=== PATIENT | male | born 1965 | race Caucasian/White ===

== ENCOUNTER 2016-11-17 19:51 | Observation (INO) | payer OTHER ==
[~2016-11-17] VITALS: Ht 175.3 cm; Wt 99.8 kg
--- NOTE | 2016-11-17 20:08 | NUR ---
PT TO ED FOR INTERMITTENT DIZZINESS X 10 DAYS. ALSO REPORTING BLURRY VISION ASSOCIATED WITH DIZZINESS, ALSO REPORTING NAUSEA WELL. DENIES CP, SOB, TAPIA.
--- NOTE | 2016-11-17 20:41 | NUR ---
SST LAV AND BLUE DRAWN AND SENT TO LAB
[2016-11-17 20:47] LABS: ABSOLUTE BASOPHIL COUNT 0 /CUMM (0.0-0.2); ABSOLUTE EOSINOPHIL COUNT 0.1 /CUMM (0.0-0.7); ABSOLUTE MONOCYTE COUNT 0.7 /CUMM (0.10-0.60); BASOPHIL % 0.4 % (0.0-2.0); EOSINOPHIL % 1.6 % (0-5); GRANULOCYTE % 44.9 % (42.2-75.2); MEAN CORPUSCULAR HGB 30.2 PG (27.0-31.0); MEAN CORPUSCULAR HGB CONC 33.8 G/DL (33.0-37.0); MEAN CORPUSCULAR VOLUME 89.2 FL (80.0-94.0); MEAN PLATELET VOLUME 8.9 FL (7.4-10.4); PLATELET COUNT 218 /CUMM (130-400); RBC DISTRIBUTION WIDTH 12.5 % (11.5-14.5); RED BLOOD CELL CT 5.27 /CUMM (4.70-6.10); WHITE BLOOD CELL COUNT 8.8 /CUMM (4.8-10.8)
[2016-11-17] MEDS ORDERED: ATENOLOL25 M1 PO (21:07)
[2016-11-17] MEDS ORDERED: LOVASTATIN10 M1 PO (21:07)
[2016-11-17] MEDS ORDERED: ADVIL200 M1 PO (21:08)
[2016-11-17] MEDS ORDERED: OMEPRAZOLE20 M2 PO (21:08)
--- NOTE | 2016-11-17 21:20 | NUR ---
PT IN ROOM 16. COMPLAINING OF DIZZINESS FOR PAST SEVERAL DAYS. SAID HIS CO WORKERS AND FAMILY ENCOURAGED HIM TO COME TO ED BECAUSE HE "DID NOT LOOK WELL". COMPLAINING OF MILD HEADACHE-STATES HE ALWAYS HAS HEADACHE. DENIES DIZZINESS AT PRESENT.
--- NOTE | 2016-11-17 21:30 | ED GENERAL ADULT ---
History of Present Illness General Chief Complaint: Dizziness Stated Complaint: DIZZY, RIGHT EYE BLURRED VISION Source: patient Exam Limitations: no limitations Vital Signs & Intake/Output Vital Signs & Intake/Output Vital Signs Date Time Temp Pulse Resp B/P Pulse O2 O2 Flow FiO2 Ox Delivery Rate 11/18 1627 98.2 72 20 140/90 95 Room Air 11/18 0800 98.0 77 20 132/80 94 Room Air 11/18 0155 97.8 64 18 138/90 97 Room Air 11/18 0056 96.0 58 20 133/71 96 Room Air 11/17 2159 98.0 70 18 158/92 98 Room Air 11/17 2134 Room Air ED Intake and Output 11/18 0000 11/17 1200 Intake Total Output Total Balance Patient 220 lb Weight Allergies Coded Allergies: No Known Allergies (11/17/16) Reconcile Medications Atenolol 50 MG TABLET 1 TAB PO DAILY hypertension and headache Ibuprofen (Advil) 200 MG CAPSULE 2 CAP PO PRN PAIN (Reported) Lovastatin 20 MG TABLET 1 TAB PO DAILY hyperlipidemia Omeprazole 20 MG CAPSULE.DR 1 CAP PO DAILY GI (Reported) Triage Note: PT TO ED FOR INTERMITTENT DIZZINESS X 10 DAYS. ALSO REPORTING BLURRY VISION ASSOCIATED WITH DIZZINESS, ALSO REPORTING NAUSEA WELL. DENIES CP, SOB, TAPIA. Triage Nurses Notes Reviewed? yes Onset: Gradual Duration: day(s): (10) Timing: no prior history Injury Environment: home Severity: moderate Severity Numbers: 7 Modifying Factors: Improves With: immobilization. Worsens With: movement, other (POSITIONAL CHANGES). HPI: Patient is a 51-year-old male with history of high cholesterol, hypertension presenting to the emergency department chief complaint of intermittent dizziness that has been going on for the past 10 days. Patient also reports associated visual changes. He describes them as "unable to concentrate". 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 The next day he was vomiting 5 episodes. Nonbloody nonbilious. No fevers or chills. He feels like he is off balance when he ambulates. He feels like he just to the right when he ambulates. 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 Denies taking anything help with symptoms. Denies any family history of stroke or heart attack. Denying any shortness of breath chest pain or palpitations. Still eating and drinking without difficulty. Mild nausea. No diarrhea. Denies abdominal pain. (MELBA PARKER) Past History Travel History Traveled to [place] past 21 day No Medical History Any Pertinent Medical History? see below for history Neurological: NONE EENT: NONE Cardiovascular: HTN HIGH CHOLESTEROL Respiratory: NONE Gastrointestinal: NONE Hepatic: NONE Renal: NONE Musculoskeletal: NONE Psychiatric: NONE Endocrine: NONE Blood Disorders: NONE Cancer(s): NONE Surgical History Surgical History: non-contributory Psychosocial History What is your primary language Kazakh Tobacco Use: Never used 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 Illicit Drug Use: denies illicit drug use Family History Hx Contributory? No (MELBA PARKER) Review of Systems Review of Systems Constitutional: Reports: malaise. Comments Review of systems: See HPI, All other systems negative. Constitutional, no chills fever or weight loss HEENT: No visual changes no sore throat no congestion Cardiovascular: No chest pain ,palpitation , orthopnea or ankle swelling Skin, no jaundice no rashes Respiratory: No dyspnea cough sputum or hemoptysis GI: No diarrhea : No dysuria No hematuria Muscle skeletal: no back pain, no neck pain, Neurologic: No numbness Psych: No stress anxiety or depression,. Heme/endocrine: No bruising no bleeding no polyuria or polydipsia Immunology: No splenectomy or history of AIDS (MELBA PARKER) Physical Exam Physical Exam General Appearance: well developed/nourished, no apparent distress, alert, awake , comfortable Comments: Well-developed well-nourished person in no acute distress HEENT: Normal EENT exam, extraocular motion intact, no nystagmus. Pupils equally round and reactive to light and accommodation. Nose is atraumatic. External auditory canal and Tympanic membranes clear. Pharynx normal. No swelling or edema. Funduscopic: Very limited secondary to no dilation prior to exam unable to appreciate any abnormalities. No obvious retinal detachment appreciated. Neck: Supple, no lymphadenopathy, normal range of motion without pain or tenderness Back: Nontender Cardiovascular: Regular rate and rhythms no murmurs rubs or gallops, normal JVP Respiratory: Chest nontender. No respiratory distress.breath sounds clear to auscultation bilaterally Abdomen: Soft, nontender nondistended, no appreciable organomegaly. Normal bowel sounds. No ascites Extremity: No edema, no calf tenderness to palpation, normal and equal pulses. Neuro: Alert oriented x3, motor sensory normal, cranial nerves II through XII grossly intact. Gait appears steady Cerebellar testing is unremarkable. Visual clemens are unremarkable bilaterally., Skin: No appreciable rash on exposed skin, skin is warm and dry. Psych: Mood and affect is normal, memory and judgment is normal. Core Measures ACS in differential dx? No CVA/TIA Diagnosis: Yes Severe Sepsis Present: No Septic Shock Present: No (NIKKI RAGSDALE,MELBA) Progress Differential Diagnoses I considered the following diagnoses in my evaluation of the patient: Hypertensive emergency, end organ damage, CVA, intracranial hemorrhage, electrolyte abnormality, dehydration, orthostatic hypotension, anemia Plan of Care: Orders Procedure Date/time Status Anticipated Discharge 11/19 0800 Active LIPID PANEL 11/19 0600 Active BASIC ELECTROLYTES PLUS BUN&CR 11/19 0600 Active Heart Healthy Diet 11/18 B Active URINE DRUGS OF ABUSE 11/18 1754 Active URINALYSIS 11/18 175 Active Change service to 11/18 1550 Active WESTERGREN SED RATE 11/18 0600 Complete CBC WITHOUT DIFFERENTIAL 11/18 0600 Complete BASIC ELECTROLYTES PLUS BUN&CR 11/18 0600 Complete Pathway - chart 11/18 0212 Active Pathway - chart 11/18 0135 Active House Staff 11/18 0135 Active Patient Data 11/18 0135 Active Code Status 11/18 0135 Active Teach/Educate 11/18 0050 Active Pain Treatment and Response 11/18 0050 Active Nutritional Intake, Monitor 11/18 0050 Active Isolation 11/18 0050 Active Patient Care Conference 11/18 0050 Active Activity/Ambulation 11/18 0050 Active PT Evaluate & Treat 11/18 UNK Active Therapeutic Activities 11/18 UNK Complete PT EVAL LOW COMPLEX 20 MIN 11/18 UNK Complete Neuromuscular Re-ed 11/18 UNK Complete Gait Training 11/18 UNK Complete House Staff 11/18 UNK Active Lab Add-on Test 11/18 UNK Active Occupational Tx Eval & Treat 11/18 UNK Active VTE Mechanical Prophylaxis 11/18 UNK Active MISTAKE 11/18 UNK Active Telemetry/Terrazzo Worker Apprentice 11/18 UNK Active ECHOCARDIOGRAM 11/18 UNK Active NIH Stroke Scale 11/17 2352 Active Patient Data 11/[address] in observation 11/17 2318 Active Vital Signs 11/17 2318 Active Code Status 11/17 2317 Complete Intake & Output 11/17 2132 Active FOLIC ACID 11/18 2039 Complete VITAMIN B12 11/18 2039 Complete Current Medications Sig/Diane Start time Last Medication Dose Stop Time Status Admin Acetaminophen 650 MG Q6P PRN 11/18 214 AC (Tylenol) Meclizine HCl 25 MG TIDPRN PRN 11/18 214 AC (Antivert) Laboratory Tests 11/18/16 0620: Anion Gap 8, Estimated GFR > 60, BUN/Creatinine Ratio 20.0, CBC w Diff NO MAN DIFF REQ, RBC 5.15, MCV 88.9, MCH 30.2, RDW 12.2, MPV 9.2, Gran % 56.0, Lymphocytes % 31.1, Monocytes % 10.5 H, Eosinophils % 1.7, Basophils % 0.7, Absolute Granulocytes 4.4, Absolute Lymphocytes 2.5, Absolute Monocytes 0.8 H, Absolute Eosinophils 0.1, Absolute Basophils 0.1, PUBS MCHC 34.0, ESR Westergren 2 Diagnostic Imaging: Viewed by Me: Radiology Read, CT Scan. Discussed w/RAD: Radiology Read, CT Scan. Radiology Impression: PATIENT: LAMBERTO KAMARA PRESENT AGE: 51 PATIENT ACCOUNT NO: [id number] : 66 LOCATION: [facility] ORDERING PHYSICIAN: MELBA RAGSDALE SERVICE DATE: 11/17/16 EXAM TYPE: CAT - CT HEAD W&WO IV CONTRAST EXAMINATION: CT HEAD WITHOUT AND WITH CONTRAST CLINICAL INFORMATION: Dizziness and visual changes. COMPARISON: None TECHNIQUE: Contiguous axial imaging was performed from the skull base to vertex before and after the administration of 95 mL of Optiray 320 intravenous contrast. DLP: 1201.41 mGy-cm FINDINGS: There is no evidence of acute intracranial hemorrhage or territorial infarction. No abnormal mass effect or midline shift is seen. [place] to white matter differentiation is well preserved. No extra-axial fluid collections are identified. There is no abnormal enhancement. The ventricles are normal in size. There is no abnormal attenuation within the brain parenchyma. The osseous structures and soft tissues are normal. The mastoid air cells and visualized portions of the paranasal sinuses are well aerated. IMPRESSION: No acute intracranial pathology. DICTATED BY: JOON GENAO MD DATE/TIME DICTATED:11/17/162244 WIRE STITCHER:DEO DATE/TIME TRANSCRIBED:11/17/162244 CONFIDENTIAL, DO NOT COPY WITHOUT APPROPRIATE AUTHORIZATION. <Electronically signed in Other Vendor System> Initial ED EKG: NSR (63 BPM) Comments: The patient is slightly hypertensive, neurologically intact no focal deficits. We will assess blood work, CBC, CMP to look for end organ damage. he'll have a CT of the head with and without contrast. 11/17/2016 11:09:33 PM patient will be signed out to Dr. ortiz pending lab work and imaging studies. (MELBA PARKER) Departure Departure Condition: Stable Clinical Impression Primary Impression: Dizziness Referrals: DAVIAN PABON,Chen COLINDRES (PCP/Family) Departure Forms: Customer Survey General Discharge Information Prescriptions: Current Visit Scripts Atenolol 1 TAB PO DAILY #30 Lovastatin 1 TAB PO DAILY #30 (MELBA PARKER) Departure Time of Disposition: 2333 Disposition: STILL A PATIENT Observation Note Spoke With: FRANCHEKSA BOWSER MD Physician Advisor Notified: KOLBY GOLDBERG DO Place Patient In: Non-ED OBS Care Area Rationale for Observation: My rational for observation is as follows [TELE MONITOR, ASPIRIN, MRI HEAD, NEURO CONSULT]. PA/MATERIAL DISPOSITION INSPECTOR Co-Sign Statement Statement: ED Attending supervision documentation- [X] I saw and evaluated the patient. I have also reviewed all the pertinent lab results and diagnostic results. I agree with the findings and the plan of care as documented in the PA's/MATERIAL DISPOSITION INSPECTOR's documentation. [X] I have reviewed the ED Record and agree with the PA's/MATERIAL DISPOSITION INSPECTOR's documentation. [] Additions or exceptions (if any) to the PAs/MATERIAL DISPOSITION INSPECTOR's note and plan are summarized below: [] (JAMAL PABON,NU) Critical Care Note Critical Care Note Critical Care Time: 30-74 min (MELBA PARKER)
--- NOTE | 2016-11-17 21:33 | NUR ---
ORTHOSTATIC BLOOD PRESSURES DONE AND MELBA RAGSDALE IN TO SEE PT
--- NOTE | 2016-11-17 21:59 | NUR ---
IV PLACED FOR CT SCAN. MANUAL BLOOD PRESSURE CHECKED
--- NOTE | 2016-11-17 22:45 | NUR ---
PT IN CT SCAN AND XRAY
--- NOTE | 2016-11-17 22:54 | NUR ---
RETURNED FROM CT SCAN. IVF STARTED
--- NOTE | 2016-11-17 22:54 | CT SCAN REPORT ---
EXAMINATION: CT HEAD WITHOUT AND WITH CONTRAST CLINICAL INFORMATION: Dizziness and visual changes. COMPARISON: None TECHNIQUE: Contiguous axial imaging was performed from the skull base to vertex before and after the administration of 95 mL of Optiray 320 intravenous contrast. DLP: 1201.41 mGy-cm FINDINGS: There is no evidence of acute intracranial hemorrhage or territorial infarction. No abnormal mass effect or midline shift is seen. [place] to white matter differentiation is well preserved. No extra-axial fluid collections are identified. There is no abnormal enhancement. The ventricles are normal in size. There is no abnormal attenuation within the brain parenchyma. The osseous structures and soft tissues are normal. The mastoid air cells and visualized portions of the paranasal sinuses are well aerated. IMPRESSION: No acute intracranial pathology.
--- NOTE | 2016-11-17 23:00 | NUR ---
MELBA IN TO INFORM PT THAT HIS CT SCAN WAS NEGATIVE. IVF STARTED FOR ELEVATED CREATININE
--- NOTE | 2016-11-17 23:07 | RADIOLOGY REPORT ---
EXAMINATION: XR CHEST CLINICAL INFORMATION: 51-year-old male patient who complains of dizziness. Hypertension. COMPARISON: None available at the time of this report. Chest CT done November 2006. TECHNIQUE: 2 views of the chest were obtained. FINDINGS: The heart is not enlarged. 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 There is no evidence of acute pulmonary parenchymal or pleural disease. IMPRESSION: Unremarkable examination. The heart is normal in size.
--- NOTE | 2016-11-17 23:43 | NUR ---
HOUSESTAFF NOTIFIED OF ADMISSION, REPORTS TO HAVE MD PAGE HIM TO DISCUSS PT.
--- NOTE | 2016-11-17 23:50 | NUR ---
ASSUMED PRIMARY CARE PT REPORTS AN ACHE ABOVE EYE NO DIZZYNESS CURRENTLY NO NEURO DEFICITS NOTED CHANGED INTO [facility] FOR ADMISSION.
--- NOTE | 2016-11-18 00:05 | History & Physical ---
KARLI PABON,ABDI 11/18/16 0004: General Information and HPI MD Statement: I have seen and personally examined LAMBERTO KAMARA Sammy SR and documented this H&P. The patient is a 51 year old M who presented with a patient stated chief complaint of [headache and dizziness]. Source of Information: patient Exam Limitations: no limitations History of Present Illness: Patient is a 51-year-old male with PMH of hypertension, hyperlipidemia and migraine headaches, who came to ED due to persistent dizziness and headache for 10 days. Patient also reports periods of blurry vision more prominent on the right side that comes and goes. Patient reports that on Wednesday around 10 AM he had an episode of almost passing out while driving. He stopped for a while but was able to drive home afterwards. His symptoms were accompanied by nausea and vomiting on the same day. Since then he reports nausea and worsened dizziness when he gets up too fast or when moving from side to side. He also reports a tendency to lose balance and fall onto the right side, denies any fall. His headache is also more prominent on the right frontal and parietal areas and intermittent blurred vision is more prominent no the right side than the left. Patient has a history of migraine headaches accompanied by dizziness reports that migraine attacks has been more frequent during the past 2 weeks. He reports that this episode of headache and dizziness has been the worst in the most prolonged he has ever had. Patient reports constant stressors in life but not more than usual. Never taken medications for anxiety. Denies palpitations, shortness of breath, chest pain, loss of consciousness, seizure activities, upper respiratory tract infection symptoms, ear pain, ringing in the ear. Patient also denies any flashes of light or floaters, also denies eye pain. Currently denies decreased visual acuity but reports his vision being 'foggy' every once in a while. Allergies/Medications Allergies: Coded Allergies: No Known Allergies (11/17/16) Home Med list Atenolol 50 MG TABLET 1 TAB PO DAILY hypertension and headache Ibuprofen (Advil) 200 MG CAPSULE 2 CAP PO PRN PAIN (Reported) Lovastatin 20 MG TABLET 1 TAB PO DAILY hyperlipidemia Omeprazole 20 MG CAPSULE.DR 1 CAP PO DAILY GI (Reported) Past History Travel History Traveled to [place] past 21 day No Medical History Neurological: NONE EENT: NONE Cardiovascular: HTN HIGH CHOLESTEROL Respiratory: NONE Gastrointestinal: NONE Hepatic: NONE Renal: NONE Musculoskeletal: NONE Psychiatric: NONE Endocrine: NONE Blood Disorders: NONE Cancer(s): NONE Surgical History Surgical History: non-contributory, knee surgeries for meniscal tear Past Family/Social History Family History Relations & Conditions if any BROTHER FH: hypertension SISTER FH: hyperlipidemia FH: hypertension MOTHER FH: heart attack FH: hyperlipidemia FH: hypertension FATHER FH: hyperlipidemia FH: hypertension Psychosocial History 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, has been sober for 5-1/2 years Illicit Drug Use: denies illicit drug use Review of Systems Review of Systems Constitutional: Denies: chills, malaise. EENTM: Reports: blurred vision, visual changes. Denies: double vision, eye pain, eye drainage, ear pain, hearing changes, nasal congestion. Cardiovascular: Denies: chest pain, palpitations. Respiratory: Denies: cough, short of breath, sputum production. GI: Denies: abdominal pain, changes in stool. Genitourinary: Reports: no symptoms. Musculoskeletal: Reports: no symptoms. Skin: Reports: no symptoms. Neurological/Psychological: Denies: ataxia, headache, numbness, weakness. Hematologic/Endocrine: Reports: no symptoms. Exam & Diagnostic Data Last 24 Hrs of Vital Signs/I&O Vital Signs Date Time Temp Pulse Resp B/P Pulse O2 O2 Flow FiO2 Ox Delivery Rate 11/18 08 98.0 77 20 132/80 94 Room Air 11/18 0155 97.8 64 18 138/90 97 Room Air 11/18 0056 96.0 58 20 133/71 96 Room Air 11/17 2159 98.0 70 18 158/92 98 Room Air 11/17 2134 Room Air 11/17 2006 98.3 89 15 177/98 100 Room Air Intake & Output 11/18 1600 11/18 0800 11/18 0000 Intake Total 500 Output Total 900 Balance -400 Intake, IV 500 Output, Urine 900 Patient 99.79 kg 99.79 kg Weight Physical Exam General Appearance Alert, Oriented X3, Cooperative, No Acute Distress Skin No Significant Lesion HEENT Atraumatic, EOMI, mildly dry mucous membranes, visual acuity and visual field exams are grossly intact, retinal exam is limited as pupils are not dilated, but did not reveal any papilledema or perfusion defects. Neck Supple, No JVD Cardiovascular Regular Rate, Normal S1, Normal S2, No Murmurs Lungs Clear to Auscultation, Normal Air Movement Abdomen Normal Bowel Sounds, Soft, No Tenderness Neurological Normal Speech, Strength at 5/5 X4 Ext, Normal Tone, Sensation Intact, Cranial Nerves 3-12 NL, Romberg negative Extremities No Edema, Normal Pulses Vascular Normal Pulses, Pulses Symmetrical Last 24 Hrs of Labs/Tim: Laboratory Tests 11/17/162039: Anion Gap 14, Estimated GFR 58 L, BUN/Creatinine Ratio 21.5, Glucose 134 H, Calcium 9.9, Total Bilirubin 0.7, AST 24, ALT 57, Alkaline Phosphatase 81, Troponin I < 0.01, Total Protein 7.0, Albumin 4.3, Globulin 2.7, Albumin/ Globulin Ratio 1.6, Vitamin B12 Pending, Folate Pending, CBC w Diff NO MAN DIFF REQ, RBC 5.27, MCV 89.2, MCH 30.2, RDW 12.5, MPV 8.9, Gran % 44.9, Lymphocytes % 45.0, Monocytes % 8.1, Eosinophils % 1.6, Basophils % 0.4, Absolute Granulocytes 4.0, Absolute Lymphocytes 4.0 H, Absolute Monocytes 0.7 H, Absolute Eosinophils 0.1, Absolute Basophils 0, PUBS MCHC 33.8 Assessment/Plan Assessment: Patient is a 51-year-old male with PMH of HLD, HTN, migraine headaches who came to the ED due to 10 days of constant dizziness, headache and episodes of blurred revision. He'll be observed on telemetry to rule out TIA and for cardiac monitoring. Problem list and plan: Dizziness, headache and blurry vision Physical exam and CT scan of the head were unremarkable. Reports worsening dizziness and nausea when getting up with changing position. Most likely etiology is benign positional vertigo or migraine attacks. * MRI of the brain (reports tendency to deviate to the right side when walking) * Check ESR to rule out temporal arteritis (although physical exam is negative or temporal tenderness) * Consider Ophthalmology consult/outpatient referral for slit lamp and dilated eye exam History of hypertension Patient reports taking atenolol 25 mg daily both for high blood pressure and migraine headaches * Please confirm home medications in a.m. and restart atenolol History of hyperlipidemia Patient does not remember the name of the lipid lowering agent. * Please confirm home medications in a.m. Diet * Heart healthy diet Pain * Tylenol for mild pain DVT prophylaxis * Subcutaneous Lovenox Full code As Ranked By This Provider Problem List: 1. Dizziness 2. Migraine headache Core Measures/Miscellaneous Acute Coronary Syndrome ACS Diagnosis: No Cerebrovascular Accident CVA/TIA Diagnosis: No Congestive Heart Failure CHF Diagnosis: No Venous Thromboembolism VTE Risk Factors: Acute medical illness, Age > 40 No Mech VTE prophylaxis d/t: No contraindications No VTE Pharm Prophylaxis d/t: No contraindications VTE Diagnosis: No VTE Type: NONE VTE Confirmed by (Test): NONE Severe Sepsis Severe Sepsis Present: No Septic Shock Septic Shock Present: No Miscellaneous Documentation Attending Case Discussed With: FRANCHESKA BOWSER MD Primary Care Physician: Chen MARCELO MD Patient sees these Specialists Does not see any specialists Level of Patient Care: Telemetry FALGUNI PABON,[facility] 11/18/16 0032: Resident Review Statement Resident Statement: examined this patient, discussed with analytics intern, agreed with analytics intern Other Findings: 51 y/o M with a PMH of HTN, HLD, Migraine who presents to the ED with complaints of dizziness x 10 days. He reports some dizziness when he gets migraines, but with this episode, his dizziness did not subside. He reports increased dizziness on moving his head from side to side and moving from one position to another suddenly. He reports intermittent blurring of vision (R>L), more like foggy vision sometime, that resolves spontaneously. He denies any tinnitus with this current episode. 2 days ago, he had an episode where he was driving and thought he was about to pass out. He stopped by the side of the road and felt better. Following this episode, he vomited 5 times and felt queasy till the next day. He does not report any more nausea after that. He also reports a heavy feeling in his head, along the right eyebrow. He has not visited an medical stenographer ever. 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 He denies any recent URI, fevers, chills, bowel or bladder complaints. Vitals: 96.0-98.3/ 50-89 / 15-20 / 133/71-177/98 /96-100% on RA] Physical Exam: AAOx3 RRR, BCTA Neurologically intact Rhomberg's negative Labs: CBC WNL, BEP shows elevated Creatinine to 1.3 (b/l 1.1) Imaging: Head CT: Negative for acute intracranial pathology CXR: Negative for any acute pathology Problem List: 1) Vertigo possibly 2/2 BPPV 2) HTN 3) HLD 4) Migraine Plan: * Admit to telemetry as obs * Meclizine 25 TID for now * MRI in AM to look for structural abnormalities * Please confirm med list in AM * DVT PPx: Lovenox SubQ * Pain Pathway: Tylenol PRN * Code Status: Full Code FRANCHESKA BOWSER 11/18/16 0651: Attending MD Review Statement Attending Statement Attending MD Statement: examined this patient, discuss w/resident/PA/PULP BLEACHER, agreed w/resident/PA/PULP BLEACHER, reviewed EMR data (avail), reviewed images, amended to note Attending Assessment/Plan: Cc: Dizziness PMH: HTN, HLD, chronic pain, migraine, dizziness Patient states that he has been having dizziness since long time but this episode is different and lasting for more than 10 days, positional, associated with foggy vision, almost passed out 2 days back, followed by vomiting and nausea, complains of swaying on the right side. Vitals: Unremarkable on exam: A O 3, neck supple, no JVD, no lymphadenopathy, mucosa moist, no focal neurological deficit, Romberg's negative, vision normal, eye examination apparently normal, no dependent edema, CVS: S1-S2, RRR. RS: Clear to auscultate bilaterally. Abdomen: Soft, NT, ND, bowel sounds present. No obvious skin inflammation or rash. Labs: CBC, BUN 28, creatinine 1.3, glucose 134, troponin less than 0.01 CXR:Unremarkable examination. The heart is normal in size. CT head with and without IV contrast: No acute intracranial pathology. A and P #1 dizziness, fogginess vision, swaying to right side : Unclear etiology, place an observation, CT head negative, would benefit from MRI, obtain ESR, trial of meclizine, PT evaluation, telemetry to rule out arrhythmia, repeat orthostatic in a.m., gentle hydration. Repeat BP in a.m., patient's creatinine elevated, received IV contrast.. #2 home medications need to be addressed in morning.
--- NOTE | 2016-11-18 00:15 | NUR ---
BED ASSIGNED 173-1
--- NOTE | 2016-11-18 00:36 | NUR ---
FLOOR CALLED FOR REPORT AWAIT RETURN CALL.
--- NOTE | 2016-11-18 00:51 | NUR ---
REPORT TO FLETCHER, WILL TRANSPORT TO FLOOR AFTER VS.
--- NOTE | 2016-11-18 01:17 | NUR ---
HOUSESTAFF NOW AT BEDSIDE.
[2016-11-18 01:55] VITALS: BP 138/90
--- NOTE | 2016-11-18 07:11 | PN- Housestaff ---
YENI PABON,GITA 11/18/16 0711: Subjective Follow-up For: headache - Left PICA infarct Complaints: headache, foggy vision in right eye Tele-Events Since Last Visit: NSR,64 -70, BECCA Subjective: Patient is seen and examined at the bed side. He was c/o headache,in right temporal area along with foggy vision. He denies for dizziness, nausea, vomiting. He says that he feels dizzy only when he walk around and he is having tendency to fall although he never fall down. Review of Systems Constitutional: Reports: weakness. EENTM: Reports: blurred vision, visual changes. Denies: double vision, eye pain, ear pain, nasal congestion. Cardiovascular: Denies: chest pain, orthopena, palpitations, syncope. Respiratory: Denies: cough, short of breath. Gastrointestinal: Denies: abdominal pain, constipation, diarrhea, nausea, vomiting. Genitourinary: Denies: pain. Musculoskeletal: Denies: back pain, neck pain. Skin: Denies: no symptoms. Objective Last 24 Hrs of Vital Signs/I&O Vital Signs Date Time Temp Pulse Resp B/P Pulse O2 O2 Flow FiO2 Ox Delivery Rate 11/18 1627 98.2 72 20 140/90 95 Room Air 11/18 0800 98.0 77 20 132/80 94 Room Air 11/18 0155 97.8 64 18 138/90 97 Room Air 11/18 0056 96.0 58 20 133/71 96 Room Air 11/17 2159 98.0 70 18 158/92 98 Room Air 11/17 2134 Room Air 11/17 2006 98.3 89 15 177/98 100 Room Air Intake & Output 11/18 1600 11/18 0800 11/18 0000 Intake Total 1520 500 Output Total 900 Balance 1520 -400 Intake, IV 800 500 Intake, Oral 720 Output, Urine 900 Patient 99.79 kg 99.79 kg Weight Physical Exam General Appearance: Alert, Oriented X3, Cooperative, No Acute Distress Skin: No Rashes HEENT: Atraumatic, PERRLA, EOMI Neck: Supple, No JVD Cardiovascular: Regular Rate, Normal S1, Normal S2 Lungs: Clear to Auscultation, Normal Air Movement Abdomen: Soft, No Tenderness Neurological: Normal Gait, Normal Speech, Strength at 5/5 X4 Ext, Normal Tone, Sensation Intact, Cranial Nerves 3-12 NL Extremities: No Clubbing, No Cyanosis, No Edema Vascular: Normal Pulses, Pulses Symmetrical Current Medications: Current Medications Sig/Diane Start time Last Medication Dose Route Stop Time Status Admin Acetaminophen 650 MG Q6P PRN 11/18 0215 AC PO Aspirin 81 MG DAILY 11/18 1500 AC 11/18 PO 1710 Aspirin 325 MG ONCE ONE 11/18 1315 DC 11/18 PO 11/18 1316 1348 Aspirin 0 .STK-MED ONE 11/17 2349 DC PO Aspirin 81 MG ONCE ONE 11/17 2345 DC 11/17 PO 11/17 2346 2353 Atorvastatin Calcium 80 MG 1700 11/18 1700 AC 11/18 PO 1710 Enoxaparin Sodium 40 MG DAILY 11/18 1000 AC 11/18 SC 1143 Meclizine HCl 25 MG TIDPRN PRN 11/18 0215 AC PO Sodium Chloride 1,000 ML .Q10H 11/18 0145 AC 11/18 IV 1713 Sodium Chloride 1,000 ML ONCE ONE 11/17 2230 DC 11/17 IV 11/18 0629 2254 Last 24 Hrs of Lab/Tim Results Last 24 Hrs of Labs/Mics: Laboratory Tests 11/18/16 0620: Anion Gap 8, Estimated GFR > 60, BUN/Creatinine Ratio 20.0, CBC w Diff NO MAN DIFF REQ, RBC 5.15, MCV 88.9, MCH 30.2, RDW 12.2, MPV 9.2, Gran % 56.0, Lymphocytes % 31.1, Monocytes % 10.5 H, Eosinophils % 1.7, Basophils % 0.7, Absolute Granulocytes 4.4, Absolute Lymphocytes 2.5, Absolute Monocytes 0.8 H, Absolute Eosinophils 0.1, Absolute Basophils 0.1, PUBS MCHC 34.0, ESR Westergren 2 11/17/16 2040: Anion Gap 14, Estimated GFR 58 L, BUN/Creatinine Ratio 21.5, Glucose 134 H, Calcium 9.9, Total Bilirubin 0.7, AST 24, ALT 57, Alkaline Phosphatase 81, Troponin I < 0.01, Total Protein 7.0, Albumin 4.3, Globulin 2.7, Albumin/ Globulin Ratio 1.6, Vitamin B12 479, Folate 6.6, CBC w Diff NO MAN DIFF REQ, RBC 5.27, MCV 89.2, MCH 30.2, RDW 12.5, MPV 8.9, Gran % 44.9, Lymphocytes % 45.0, Monocytes % 8.1, Eosinophils % 1.6, Basophils % 0.4, Absolute Granulocytes 4.0, Absolute Lymphocytes 4.0 H, Absolute Monocytes 0.7 H, Absolute Eosinophils 0.1 , Absolute Basophils 0, PUBS MCHC 33.8 Assessment/Plan Assessment: Patient is a 51-year-old male with significant past medical history of hypertension (since 8yrs, on atenolol, low salt diet), hyperlipidemia, migraine, presented to the [place] ED with history of headache since last 7 days , associated with foogy vision in right eye, dizziness and tendency to fall. Plan - Acute left PICA infarct - * Neuro check every 2 hourly * Advised to watch for neurological deterioration * Advised to take all fall precaution * Advised to keep the blood pressure between 130-140/80-90 * We will add tablet aspirin 325 mgs once, followed by 81 mgs daily * We will also accepted atorvastatin 80 mgs once a day * We will check lipid profile, urinalysis, urine tox to rule out cocaine * We will follow the neurologic recommendation * Discussed with Dr. Stevens. According to him, patient usually needs 72 hours of observation. We will observe for next 24-hour,as he had headache and symptoms from last 7 days and then plan for discharge. We will also do a bubble study to rule out PFO. * We will follow the cardiology recommendation * PT/OT Hypertension - * We'll keep the blood pressure between 130-140/80-90 Hyperlipidemia - * We will check the lipid profile tomorrow * We will and tablet atorvastatin 80 milligrams once a day Diet-heart healthy, low-salt, low-fat diet DVT prophylaxis-ALP S/heparin/ambulation CODE STATUS-full code Problem List: 1. Cerebral infarction involving left cerebellar artery 2. Headache 3. Dizziness 4. Hypertension 5. Hyperlipidemia Pain Ratin Pain Location: Right temporal area of the head Pain Goal: Remain pain free Pain Plan: [id number] Tomorrow's Labs & Rationales: Lipid profile, urinalysis, urine tox-evaluation of the stroke and its risk factors DVT/Prophylaxis: mechanical, pharmacological ANGELA RECINOS MD 11/18/16 0281: Attending Review Statement Attending Statement Attending MD Statement: examined this patient, discuss w/resident/PA/BSW, agreed w/resident/PA/BSW, discussed with family, reviewed EMR data (avail), discussed with nursing, discussed with case mgmt, reviewed images, amended to note Attending Assessment/Plan: The patient was seen and discussed with house staff, family (), nursing, case management and Neurology (Dr. Stevens). MRI showing left cerebellar CVA (3 small foci) with no effacement of the ventricle. CT angiogram done showing no significant stenosis. TTE done (results pending). No arrhythmias on telemetry. Will continue observation with neuro checks as per Neurology. Neurology note pending, however may benefit from ECHO bubble study (and also OP Holter). Continue ASA/Atorvastatin.
[2016-11-18 08:00] VITALS: BP 132/80
[2016-11-18 08:16] LABS: ABSOLUTE BASOPHIL COUNT 0.1 /CUMM (0.0-0.2); ABSOLUTE EOSINOPHIL COUNT 0.1 /CUMM (0.0-0.7); ABSOLUTE GRANULOCYTE CT 4.4 /CUMM (1.4-6.5); ABSOLUTE LYMPH COUNT 2.5 /CUMM (1.2-3.4); ABSOLUTE MONOCYTE COUNT 0.8 /CUMM (0.10-0.60); BASOPHIL % 0.7 % (0.0-2.0); EOSINOPHIL % 1.7 % (0-5); HEMATOCRIT 45.8 % (42-52); MEAN CORPUSCULAR HGB 30.2 PG (27.0-31.0); MEAN CORPUSCULAR VOLUME 88.9 FL (80.0-94.0); MEAN PLATELET VOLUME 9.2 FL (7.4-10.4); PLATELET COUNT 205 /CUMM (130-400); RBC DISTRIBUTION WIDTH 12.2 % (11.5-14.5); RED BLOOD CELL CT 5.15 /CUMM (4.70-6.10); WHITE BLOOD CELL COUNT 7.9 /CUMM (4.8-10.8)
[2016-11-18] MEDS ORDERED: ATENOLOL50 M1 PO (10:48)
[2016-11-18] MEDS ORDERED: LOVASTATIN20 M1 PO (10:48)
--- NOTE | 2016-11-18 10:52 | Patient Discharge Instructions ---
Discharge Instructions General Discharge Information You were seen/treated for: deidre under evaluation Special Instructions: please follow up with neurologist for further management of infarct in brain. Please follow up with PCP with in a week of discharge. Please take medication as advised. Diet Recommended Diet: Heart Healthy Activity Full Activity/No Limits: No (as tolerated) Acute Coronary Syndrome Inclusion Criteria At DC or during hospital stay patient has or had the following: ACS DIAGNOSIS No Discharge Core Measures Meds if any: Prescribed or Continued at Discharge Meds if any: NOT Prescribed or Continued at Discharge Congestive Heart Failure Inclusion Criteria At DC or during hospital stay patient has or had the following: CHF DIAGNOSIS No Discharge Core Measures Meds if any: Prescribed or Continued at Discharge Meds if any: NOT Prescribed or Continued at Discharge Cerebrovascular accident Inclusion Criteria At DC or during hospital stay patient has or had the following: CVA/TIA Diagnosis No Discharge Core Measures Meds if any: Prescribed or Continued at Discharge Meds if any: NOT Prescribed or Continued at Discharge Venous thromboembolism Inclusion Criteria VTE Diagnosis No VTE Type NONE VTE Confirmed by (Test) NONE Discharge Core Measures - Per Current guidelines, there needs to be overlap - treatment for the first 5 days of Warfarin therapy. - If discharged on Warfarin prior to 5 days of - overlap therapy, the patient will need to be - assessed for post discharge needs including - *Post discharge parental anticoagulation - *Warfarin and/or parental anticoagulation education - *Follow up date to check INR post discharge At least 5 days overlap therapy as Inpatient No Meds if any: Prescribed or Continued at Discharge Warfarin No Note: Overlap Therapy is Warfarin and Anticoagulant Meds if any: NOT Prescribed or Continued at Discharge
--- NOTE | 2016-11-18 11:44 | MRI REPORT ---
EXAMINATION: MR BRAIN WITHOUT AND WITH CONTRAST CLINICAL INFORMATION: Dizziness. Assess for structural abnormalities. COMPARISON: CT scan of the head 11/17/2016. TECHNIQUE: MRI of the brain was obtained using routine sequences before and after the intravenous administration of 20 mL of OptiMARK. FINDINGS: There are areas of restricted diffusion in the left cerebellar hemisphere posteriorly, as well as in the left cerebral hemisphere anteromedially. These regions have corresponding T2 and FLAIR hyperintensities are consistent with acute infarction. There is no hemorrhagic transformation. No other restricted diffusion is demonstrated. No mass effect or midline shift is seen. The ventricles are normal in size. Elsewhere, brain parenchymal signal is normal. No extra-axial fluid collections are seen. The brainstem is normal. On postcontrast imaging, there is no abnormal parenchymal or leptomeningeal enhancement. No pathologic magnetic susceptibility artifact is identified on the gradient refocused acquisition. The craniovertebral junction, marrow signal, and midline structures are normal. The major intracranial flow-voids at the level of the [place] are preserved. The dural venous sinus flow-voids are maintained. The mastoid air cells well-aerated. There is a retention cyst inferiorly in the left maxillary sinuses there is mild ethmoid sinus mucoperiosteal thickening bilaterally. IMPRESSION: 1. There are acute infarcts in the left cerebellum, in the distribution of the left PICA. There is no evidence of hemorrhagic transformation. 2. There are no masses or areas of abnormal enhancement. 3. This critical result was discussed with Asaf Kohli by telephone on 11/18/2016 at 11:39 AM and it was ascertained that the content and urgency of the report was understood at the time of direct communication.
[2016-11-18 16:27] VITALS: BP 140/90
--- NOTE | 2016-11-18 16:59 | CT SCAN REPORT ---
EXAMINATION: CT ANGIOGRAM OF THE HEAD CT ANGIOGRAM OF THE NECK CLINICAL INFORMATION: Left cerebellar CVA. COMPARISON: MRI scan of the brain obtained earlier 11/18/2016. TECHNIQUE: A noncontrast axial CT scan of the head was obtained. Test bolus sequences followed by intravenous administration 125 mL of Optiray 350. Helical imaging was performed in the axial plane from the mediastinum to the skull vertex. Delayed postcontrast imaging of the head was also performed. The data was processed at the medical technologist prn workstation for generation of MIP sequences. The degree of stenosis is based off NASCET criteria. Three-dimensional volume rendered reformatted images were also generated at an offline 3-D workstation. DLP: 2670.53 mGy-cm. FINDINGS: CT HEAD: There is a wedge-shaped area of low attenuation in the posterior left cerebellar hemisphere. There is no evidence of hemorrhage or abnormal enhancement in this region. The focus of infarct in the medial left cerebellar hemisphere more anteriorly is not appreciated on this study. There is no evidence of acute intracranial hemorrhage. No abnormal mass-effect or midline shift is seen. [place] to white matter differentiation elsewhere is well preserved. No extra-axial fluid collections are identified. There is no abnormal enhancement. The ventricles are normal in size. There is no other abnormal attenuation within the brain parenchyma. The osseous structures and soft tissues are normal. There are mild atheromatous calcifications of the cavernous internal carotid arteries. No significant atheromatous calcifications are seen in the vertebral arteries. The mastoid air cells are well-aerated. There is a retention cyst in the inferior left maxillary sinus. CTA NECK: There are mild atheromatous calcifications of the aortic arch. The origins of the great vessels of the neck are suboptimally visualized due to beam hardening artifact from contrast in the left neck and arm vein and the left brachiocephalic vein. The subclavian arteries are patent. Both common carotid arteries are widely patent. The carotid bifurcations appear normal, and there is no focal stenosis. The cervical internal carotid arteries bilaterally appear uniform in caliber without evidence of focal stenosis. Both vertebral artery origins are well demonstrated. The vertebral arteries are patent bilaterally, and are codominant in the neck. There is no focal stenosis of the vertebral arteries on either side. NONVASCULAR: The visualized lung clemens appear clear. The thyroid gland appears normal. There is no cervical lymphadenopathy. There are tonsillar calcifications bilaterally. The temporomandibular joints appear normal bilaterally. CTA HEAD: In the anterior circulation, the distal internal carotid arteries within the neck appear normal. There is atheromatous calcification of the cavernous internal carotid arteries bilaterally, but the vessels are patent. The carotid bifurcations appear normal. The middle and anterior cerebral arteries bilaterally demonstrate normal caliber with no evidence of focal stenosis, aneurysm or vascular malformation. The anterior communicating artery is normal. In the posterior circulation, the vertebral arteries are codominant. The vertebral arteries intradurally have normal caliber. The left PICA appears to be patent and more prominent compared to the right. The basilar artery appears normal. The posterior cerebral arteries have normal caliber. The dural venous sinuses opacify normally. IMPRESSION: 1. The study redemonstrates sequelae of an infarct in the left posterior cerebellar hemisphere. There is no evidence of hemorrhage. 2. There are no masses or areas of abnormal enhancement. 3. There are atheromatous calcifications of the aorta and cavernous internal carotid arteries. 4. No focal stenosis is demonstrated in the arteries in the neck or intracranially. 5. There are no vascular malformations or aneurysms.
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
--- NOTE | 2016-11-18 20:44 | Discharge Summary ---
Visit Information Visit Dates Admission Date: 11/17/16 Discharge Date: 11/19/2016 Hospital Course Course Attending Physician: JAMES COMBS MD Primary Care Physician: Chen MARCELO MD Hospital Course: Patient is a 51-year-old male with significant past medical history of hypertension (since 8yrs, on atenolol, low salt diet), hyperlipidemia, migraine, presented to the [place] [facility] with history of headache since last 7 days , associated with foogy vision in right eye, dizziness and tendency to fall. Vital signs at the time of admission -temperature 98.3, pulse 89, respiratory rate 15, blood pressure 177/90, SPO 200% on room air Acute left PICA infarct - On evaluation, CT scan of the head showed no any acute intracranial pathology, chest x-ray was negative for any acute cardiopulmonary abnormality, orthostatic vitals were normal. As patient was having dizziness and tendency to fall towards right side, it was decided to observe him on telemetry floor. Blood workup showed high creatinine of 1.3, so we started patient on IV fluids. We did MRI of brain which showed acute left cerebellum infarct in the distribution of left PICA.We started him on Aspirin and high dose atorvastain. We took neurology consult and they advised for 24-hour observation and outpatient follow-up for further management.We evaluated him to know the etiology. CTA of head and neck showed no any evidence of stenosis. Echo showed LVEF of 80% and Mild LVH. We advised him that he may need bubble study to rule out patent foramen oval, which can be done as an outpatient. Hospital course was uneventful. There was no any episodes of arrhythmia on telemetry monitoring. We discharged him with advice to follow-up with the neurologist for further evaluation and management of stroke.We also advised him to take on fall precautions, avoid smoking and take low-salt and heart healthy diet. Allergies: Coded Allergies: No Known Allergies (11/17/16) Disposition Summary Disposition Principal Diagnosis: Acute Left PICA infarct Additional Diagnosis: Hypertension Hyperlipidemia Migraine Obesity Discharge Disposition: home or self care Discharge Instructions General Discharge Information Code Status: Full Code Patient's Diet: Heart healthy diet, low salt diet, low fat diet Patient's Activity: As tolerated Take all fall precaution Follow-Up Instructions/Appts: Please follow-up with the neurologist within a week of discharge for further management on the stroke Please follow-up with your PCP for further management of hypertension, high lipids, and the stroke Please take the medication as advised Take all fall precaution Medications at Discharge Discharge Medications: Stop taking the following medications: Ibuprofen (Advil) 200 MG CAPSULE ORAL as needed for PAIN Atenolol (Atenolol) (Unknown Strength) TABLET ORAL DAILY Lovastatin (Lovastatin) (Unknown Strength) TABLET ORAL DAILY Continue taking these medications: Omeprazole (Omeprazole) 20 MG CAPSULE.DR 1 Capsule ORAL DAILY Start taking the following new medications: Meclizine HCl (Meclizine HCl) 25 MG TABLET 25 Milligram ORAL THREE TIMES A DAY NEEDED as needed for VERTIGO Qty = 30 No Refills Atorvastatin Calcium (Atorvastatin Calcium) 80 MG TABLET 80 Milligram ORAL 5 PM Qty = 90 No Refills Lisinopril (Lisinopril) 2.5 MG TABLET 2.5 Milligram ORAL DAILY Qty = 30 No Refills Aspirin (Aspirin*) 81 MG TAB.CHEW 81 Milligram ORAL DAILY Qty = 90 No Refills Copies To: Chen MARCELO MD Attending MD Review Statement Documenting Attending: JAMES COMBS MD
--- NOTE | 2016-11-18 23:40 | ECHOCARDIOGRAM REPORT ---
LAMBERTO KAMARA Age: 51 : 1965 Gender: M Exam Date: 11/18/2016 15:42 Exam Location: 1 [place] Ht (in): 69 Wt (lb): 220 BSA: 2.24 BP: 132 / 80 Ordering Physician: ELIUD CRONIN MD Referring Physician: ELIUD CRONIN MD Technologist: Rosa Hernandez [facility] Room Number: [id number] Indications: STROKE Rhythm: Sinus Technical Quality: good FINDINGS Left Ventricle Normal left ventricular size with mild left ventricular hypertrophy. Normal systolic function with no obvious regional wall motion abnormalities. Normal left ventricular diastolic filling pattern for age. The ejection fraction is visually estimated at 80%. Right Ventricle The right ventricle is normal in size and function. Right Atrium The right atrium is normal in size. Left Atrium The left atrium is normal in size. The interatrial septum is intact. Mitral Valve The mitral valve is normal in structure and function. There is trace mitral regurgitation. Aortic Valve Structurally normal aortic valve without significant sclerosis or stenosis. There is no aortic regurgitation. Tricuspid Valve The tricuspid valve is normal in structure and function. There is trace tricuspid regurgitation. Pulmonary artery systolic pressure is normal. Pulmonic Valve Structurally normal pulmonic valve. There is mild pulmonic regurgitation. Pericardium Normal pericardium without effusion. No pleural effusion. Great Vessels Normal aortic root dimension. The aortic arch and great vessels are well seen and are normal. CONCLUSIONS 1. Normal EF of 80%. 2. Mild left ventricular hypertrophy. 3. Trace mitral regurgitation. 4. Trace tricuspid regurgitation. 5. Mild pulmonic regurgitation. Yunier Lewis M.D. (Electronically Signed) Final Date: 18 November 2016 23:39 MEASUREMENTS (Male / Female) Normal Values 2D ECHO LV Diastolic Diameter PLAX 4.3 cm 4.2 - 5.9 / 3.9 - 5.3 cm LV Systolic Diameter PLAX 2.1 cm 2.1 - 4.0 cm LV Fractional Shortening PLAX 51.2 % 25 - 46 % LV Ejection Fraction 2D Teich 82.7 % IVS Diastolic Thickness 1.5 cm LVPW Diastolic Thickness 1.5 cm LV Relative Wall Thickness 0.7 RV Internal Dim ED PLAX 2.5 cm 1.9 - 3.8 cm LVOT Diameter 2.0 cm Aortic Root Diameter 3.2 cm LA Systolic Diameter LX 3.7 cm 3.0 - 4.0 / 2.7 - 3.8 cm LA Volume 36.0 cm 18 - 58 / 22 - 52 cm Ascending Aorta Diameter 3.3 cm DOPPLER AV Peak Velocity 132.0 cm/s AV Peak Gradient 7.0 mmHg AV Mean Velocity 89.5 cm/s AV Mean Gradient 4.0 mmHg AV Velocity Time Integral 25.8 cm LVOT Peak Velocity 117.0 cm/s LVOT Peak Gradient 5.5 mmHg LVOT Mean Velocity 75.1 cm/s LVOT Mean Gradient 3.0 mmHg LVOT Velocity Time Integral 20.4 cm LVOT Stroke Volume 64.1 cm AV Area Cont Eq vti 2.5 cm AV Area Cont Eq pk 2.8 cm MV Peak Velocity 105.0 cm/s MV Peak Gradient 4.4 mmHg MV Mean Velocity 64.5 cm/s MV Mean Gradient 2.0 mmHg Mitral E Point Velocity 83.4 cm/s Mitral A Point Velocity 76.5 cm/s Mitral E to A Ratio 1.1 MV PHT Velocity 109.0 cm/s MV Deceleration [place] 728.0 cm/s MV Pressure Half Time 44.9 ms MV Area PHT 4.9 cm MV Deceleration Time 264.0 ms TR Peak Velocity 228.0 cm/s TR Peak Gradient 20.8 mmHg Right Atrial Pressure 5.0 mmHg Pulmonary Artery Systolic Pressu 25.8 mmHg Right Ventricular Systolic Press 25.8 mmHg PV Peak Velocity 120.0 cm/s PV Peak Gradient 5.8 mmHg PV Mean Velocity 81.2 cm/s PV Mean Gradient 3.0 mmHg PV Velocity Time Integral 27.0 cm LV E' Lateral Velocity 9.1 cm/s Mitral E to LV E' Lateral Ratio 9.2 LV E' Septal Velocity 8.4 cm/s Mitral E to LV E' Septal Ratio 10.0
[2016-11-19 00:26] VITALS: BP 138/80
--- NOTE | 2016-11-19 08:22 | PN- Housestaff ---
See Addendum Subjective Follow-up For: Left PICA infarct Complaints: is still having mild headache Tele-Events Since Last Visit: Normal sinus rhythm with heart rate between 50-70, no any overnight events Subjective: Patient is seen and examined at the bedside. He was feeling much better. He states that his headache has been going down 4 -5/10. He is still having mild dizziness and foggy vision. Denies any nausea, chest pain, shortness of breath. Review of Systems Constitutional: Reports: weakness. Cardiovascular: Denies: chest pain, edema, orthopena, palpitations. Respiratory: Denies: cough, hemoptysis, orthopnea, short of breath, sputum production. Gastrointestinal: Denies: abdominal pain, bloating, constipation, diarrhea. Genitourinary: Denies: no symptoms. Musculoskeletal: Denies: no symptoms. Skin: Denies: no symptoms. Neurological/Psychological: Reports: depressed, headache. Denies: cognitive dysfunction, confusion. Objective Last 24 Hrs of Vital Signs/I&O Vital Signs Date Time Temp Pulse Resp B/P Pulse O2 O2 Flow FiO2 Ox Delivery Rate 11/19 0026 98.1 72 20 138/80 95 Room Air 11/18 1627 98.2 72 20 140/90 95 Room Air Intake & Output 11/19 1600 11/19 0800 11/19 0000 Intake Total 850 1200 Output Total 725 Balance 125 1200 Intake, IV 800 800 Intake, Oral 50 400 Output, Urine 725 Physical Exam General Appearance: Alert, Oriented X3, Cooperative, No Acute Distress HEENT: Atraumatic, PERRLA, EOMI Cardiovascular: Regular Rate, Normal S1, Normal S2 Lungs: Clear to Auscultation, Normal Air Movement Abdomen: Soft, No Tenderness Neurological: Normal Speech, Strength at 5/5 X4 Ext, Normal Tone, Sensation Intact, Cranial Nerves 3-12 NL Extremities: No Clubbing, No Cyanosis, No Edema Vascular: Normal Pulses, Pulses Symmetrical Current Medications: Current Medications Sig/Diane Start time Last Medication Dose Route Stop Time Status Admin Acetaminophen 650 MG Q6P PRN 11/18 0215 AC PO Aspirin 81 MG DAILY 11/18 1500 AC 11/18 PO 1710 Aspirin 325 MG ONCE ONE 11/18 1315 DC 11/18 PO 11/18 1316 1348 Atorvastatin Calcium 80 MG 1700 11/18 1700 AC 11/18 PO 1710 Enoxaparin Sodium 40 MG DAILY 11/18 1000 AC 11/18 SC 1143 Lisinopril 2.5 MG DAILY 11/19 1000 AC PO Meclizine HCl 25 MG TIDPRN PRN 11/18 0215 AC PO Sodium Chloride 1,000 ML .Q10H 11/18 0145 DC 11/18 IV 2212 Last 24 Hrs of Lab/Tim Results Last 24 Hrs of Labs/Mics: Laboratory Tests 11/19/16 0610: Sodium Pending, Potassium Pending, Chloride Pending, Carbon Dioxide Pending, Anion Gap Pending, BUN Pending, Creatinine Pending, BUN/Creatinine Ratio Pending , Triglycerides Pending, Cholesterol Pending, LDL Cholesterol, Calc Pending, HDL Cholesterol Pending, Cholesterol/HDL Ratio Pending 11/18/16 2200: Urine Opiates Screen < 100.00, Methadone Screen < 40, Barbiturate Screen < 60, Ur Phencyclidine Scrn < 6.00, Amphetamines Screen < 100, U Benzodiazepines Scrn < 85, Urine Cocaine Screen < 50, Urine Cannabis Screen < 5.00, Urine Color STRAW , Urine Clarity CLEAR, Urine pH 6.5, Ur Specific [place] 1.010, Urine Protein NEG, Urine Ketones NEG, Urine Nitrite NEG, Urine Bilirubin NEG, Urine Urobilinogen 0.2, Ur Leukocyte Esterase NEG, Ur Microscopic EXAM NOT REQUIRED, Urine Hemoglobin NEG, Urine Glucose NEG Assessment/Plan Assessment: Patient is a 51-year-old male with significant past medical history of hypertension (since 8yrs, on atenolol, low salt diet), hyperlipidemia, migraine, presented to the [place] ED with history of headache since last 7 days , associated with foogy vision in right eye, dizziness and tendency to fall. Plan - Discharge Today Acute left PICA infarct - * Advised to watch for neurological deterioration * Advised to take all fall precaution * We will continue tablet aspirin 81 mgs daily, tab atorvastatin 80 mgs once a day * lipid profile showed high cholesterol, urinalysis and urine tox were neg. * We will also do a bubble study to rule out PFO as an outpt. * PT/OT Hypertension - * We'll start him on low dose losinopril Hyperlipidemia - * We will continue tablet atorvastatin 80 mgs once a day Diet-heart healthy, low-salt, low-fat diet DVT prophylaxis-ALP S/heparin/ambulation CODE STATUS-full code Problem List: 1. Cerebral infarction involving left cerebellar artery 2. Headache 3. Migraine headache 4. Hypertension 5. Hyperlipidemia Pain Ratin Pain Location: Head Pain Goal: Remain pain free Pain Plan: mild Tomorrow's Labs & Rationales: not required as patient is discharged DVT/Prophylaxis: mechanical, pharmacological Pain Plan: mild Tomorrow's Labs & Rationales: not required as patient is discharged DVT/Prophylaxis: mechanical, pharmacological
[2016-11-19 08:36] VITALS: BP 130/80
[2016-11-19 10:16] VITALS: BP 130/80
[2016-11-19] MEDS ORDERED: ATORVASTATIN CA80 M1 PO (10:18)
[2016-11-19] MEDS ORDERED: ASPIRIN81 M4 PO (10:18)
[2016-11-19] MEDS ORDERED: LISINOPRIL2.5 M1 PO (10:18)
[2016-11-19] MEDS ORDERED: MECLIZINE HCL25 MG PO ×2 (10:22→10:28)
== END 2016-11-19 12:25 ==
LOC: ENRESERVTM → ENRESERVDT → ERH 19:51 → ENPENDDIS 23:18 → ERHI 23:18 → 1NO 23:18
PROVIDERS: Emergency Medicine; Internal Medicine; ADMIT Internal Medicine
DX: I63.542 Cerebral infarction due to unspecified occlusion or stenosis of left cerebellar artery (principal); I10 Essential (primary) hypertension; E78.5 Hyperlipidemia, unspecified; E66.9 Obesity, unspecified; G43.909 Migraine, unspecified, not intractable, without status migrainosus
CPT/HCPCS: 6020; 70552; 36415; 70553; 80307; 81003; 82436; 93005; 93010; 93306; 96372; 97112-GO; 97116-GO; 97161-GP; 97165-GO; 97530-GO; A9579; G0378; J1650; J3490; Q9965

== ENCOUNTER 2018-01-16 15:08 | Emergency (ER) | payer OTHER ==
[~2018-01-16] VITALS: Ht 175.3 cm; Wt 93.9 kg
[~2018-01-16 15:08] MED LIST: ADVIL200 M1 PO; ASPIRIN81 M4 PO; ATENOLOL25 M1 PO; ATENOLOL50 M1 PO; ATORVASTATIN CA80 M1 PO; LISINOPRIL2.5 M1 PO; LOVASTATIN10 M1 PO; LOVASTATIN20 M1 PO; MECLIZINE HCL25 MG PO; OMEPRAZOLE20 M2 PO
--- NOTE | 2018-01-16 15:39 | ED HEADACHE COMPLAINT ---
History of Present Illness General Chief Complaint: Facial or Head Injury Stated Complaint: TREE BRANCH SPRANG UP AND HIT IN HEAD Source: patient Exam Limitations: no limitations Vital Signs & Intake/Output Vital Signs & Intake/Output Vital Signs Date Time Temp Pulse Resp B/P B/P Pulse O2 O2 Flow FiO2 Mean Ox Delivery Rate 01/16 1746 97.9 80 18 132/76 98 Room Air 01/16 1703 98.0 01/16 1519 98.0 90 18 136/85 98 Room Air Allergies Coded Allergies: No Known Allergies (11/17/16) Triage Note: 52 YEAR OLD MALE STATES THAT HE WAS CUTTING TREES WHEN A BIG BRANCH FELL AND HIT HIM IN THE HEAD, DENIES LOC BUT BRANCH KNOCKED HIM TO THE GROUND. PT VOMITTING AT TRIAGE , NOTED WITH LAC TO SIDE OF HEAD. Triage Nurses Notes Reviewed? yes Onset: Abrupt Duration: constant Timing: single episode today Severity Numbers: 5 Head Injury Location: frontal HPI: Patient is a 52-year-old male since mentioned stating that while cutting trees today a tree branch whiplash and struck him to the right side of his forehead resulting laceration, no loss of consciousness had occurred. Patient complains of mild headache and scalp pain. Denies any neck or back pain Tetanus is (Myke Jean) Reconcile Medications Aspirin (Aspirin*) 81 MG TAB.CHEW 81 MG PO DAILY CVA Atorvastatin Calcium 80 MG TABLET 80 MG PO 1700 High cholesterol Lisinopril 2.5 MG TABLET 2.5 MG PO DAILY blood pressure Meclizine HCl 25 MG TABLET 25 MG PO TIDPRN PRN VERTIGO Omeprazole 20 MG CAPSULE.DR 1 CAP PO DAILY GI (Reported) Ondansetron HCl (Zofran) 4 MG TABLET 1 TAB PO Q6-8P PRN NAUSEA (Fermin Hylton MD) Past History Travel History Traveled to [place] past 21 day No Medical History Any Pertinent Medical History? see below for history Neurological: NONE EENT: NONE Cardiovascular: HTN HIGH CHOLESTEROL Respiratory: NONE Gastrointestinal: NONE Hepatic: NONE Renal: NONE Musculoskeletal: NONE Psychiatric: NONE Endocrine: NONE Blood Disorders: NONE Cancer(s): NONE History of MRSA: No History of VRE: No History of CDIFF: No Surgical History Surgical History: non-contributory, knee surgeries for meniscal tear Psychosocial History What is your primary language Hungarian Tobacco Use: Never used 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 Illicit Drug Use: denies illicit drug use Family History Family History, If Any: BROTHER FH: hypertension SISTER FH: hyperlipidemia FH: hypertension MOTHER FH: heart attack FH: hyperlipidemia FH: hypertension FATHER FH: hyperlipidemia FH: hypertension Hx Contributory? No (Myke Jean) Review of Systems Review of Systems Constitutional: Reports: no symptoms. Eyes: Reports: no symptoms. Ears, Nose, Throat, Mouth: Reports: no symptoms. Respiratory: Reports: no symptoms. Cardiovascular: Reports: no symptoms. Gastrointestinal/Abdominal: Reports: no symptoms. Genitourinary: Reports: no symptoms. Musculoskeletal: Reports: no symptoms. Skin: Reports: see HPI. Neurological/Psychological: Reports: see HPI. Hematologic/Endocrine: Reports: see HPI, bleeding. Endocrine: Reports: no symptoms. Immunologic/Allergic: Reports: no symptoms. All Other Systems: Reviewed and Negative (Myke Jean) Physical Exam Physical Exam General Appearance: no apparent distress, alert, comfortable Head: active bleeding, evidence of injury Eyes: Bilateral: normal appearance, PERRL, EOMI. Ears, Nose, Throat: normal ENT inspection, hearing grossly normal Neck: normal inspection, no midline tenderness Respiratory: normal breath sounds, chest non-tender Extremities: normal inspection, no edema Cranial Nerves: normal hearing, normal speech, PERRL Coordination/Gait: normal finger to nose Motor/Sensory: no motor/sensory deficits Comments: CN II-XII INTACT Diagram Head: 1) 2.5 cm mildly gaping irregular SUBCUTANEOUS LACERATION Core Measures Sepsis Present: No Sepsis Focused Exam Completed? No (Myke Jean) Progress Differential Diagnosis: carotid dissection, cav sinus thromb, cluster LUNDBERG, encephalitis, IC mass/tumor, intracranial Hem., meningitis, migraine LUNDBERG, musculoskeletal pain, sinusitis, SSS thrombosis, subarach. Hem., tension LUNDBERG, temporal arteritis, TMJ syndrome, viral cephalgia Plan of Care: Current Medications Sig/Diane Start time Last Medication Dose Stop Time Status Admin Meclizine HCl 25 MG ONCE ONE 01/16 1700 UNVr (Antivert) 01/16 1701 Ondansetron HCl 4 MG ONCE ONE 01/16 1700 UNVr (Zofran) 01/[address] scan was resulted no concerns of ICH or fracture margins were revised suture placement and patient will be treated for concerns of forehead laceration and concussion. Discussed CT scan results with patient Diagnostic Imaging: Viewed by Me: CT Scan. Radiology Impression: no acute abnormality Comments: PATIENT: LAMBERTO KAMARA PRESENT AGE: 52 PATIENT ACCOUNT NO: [id number] : 66 LOCATION: [facility] ORDERING PHYSICIAN: Myke RAGSDALE SERVICE DATE: 01/16/18 EXAM TYPE: CAT - CT HEAD WO IV CONTRAST EXAMINATION: CT HEAD WITHOUT CONTRAST CLINICAL INFORMATION: Head injury nausea vomiting COMPARISON: None TECHNIQUE: Contiguous axial imaging was performed from the skull base to vertex without intravenous administration of contrast. DLP: 621 mGy-cm FINDINGS: There is no evidence of acute intracranial hemorrhage or territorial infarction. No abnormal mass effect or midline shift is seen. [place] to white matter differentiation is well preserved. No extra-axial fluid collections are identified. The ventricles are normal in size. There is no abnormal attenuation within the brain parenchyma. The osseous structures and soft tissues are normal. The mastoid air cells and visualized portions of the paranasal sinuses are well aerated. Incidental finding was made of a small 3 mm soft tissue structure in the RIGHT external auditory canal, this can be examined directly. IMPRESSION: 1. No intracranial bleed or pathology. 2. There is a 3 mm soft tissue structure in the external auditory canal on the RIGHT side, external cholesteatoma versus a skin lesion. Correlate to the clinical exam. DICTATED BY: Molly Underwood MD DATE/TIME DICTATED:01/16/181609 CORPORATE LEARNING CONSULTANT:DEO DATE/TIME TRANSCRIBED:01/16/18 / (Katheryn RAGSDALE,Myke) Departure Departure Disposition: HOME OR SELF CARE Condition: Stable Clinical Impression Primary Impression: Forehead laceration Secondary Impressions: Concussion, Minor head trauma Referrals: Alexander PABON,Juan Luis Lese (PCP/Family) Additional Instructions: As discussed begin Tylenol for pain, begin to apply bacitracin to the region 1 time a day for the following 4 days, return to emergency room or follow-up with primary care doctor in 7-9 days for suture removal. If you note signs of infection redness, pain, SWELLING discharge or develop any new concerning symptom return to emergency room. Follow-up with your neurologist this week continue Tylenol for headaches and pain, begin the prescription of Zofran for nausea Prescriptions waiting at [facility] Departure Forms: Customer Survey General Discharge Information Prescriptions: Current Visit Scripts Ondansetron HCl (Zofran) 1 TAB PO Q6-8P PRN NAUSEA #10 TAB (Myke Jean) PA/REFUGE WORKER Co-Sign Statement Statement: ED Attending supervision documentation- I saw and evaluated the patient. I have also reviewed all the pertinent lab results and diagnostic results. I agree with the findings and the plan of care as documented in the PA's/REFUGE WORKER's documentation. x I have reviewed the ED Record and agree with the PA's/REFUGE WORKER's documentation. [] Additions or exceptions (if any) to the PAs/REFUGE WORKER's note and plan are summarized below: [] (Warner PABON,Fermin) Procedures Laceration/Wound Repair Laceration/Wound Repair: Wound Location: head Wound's Depth, Shape: irregular, subcutaneous Wound Length (cm): 2.5 Wound Explored: clean, no foreign body removed, irrigated extensively Irrigated w/ Saline (ccs): 360 Betadine Prep? Yes Anesthesia: 1% lidocaine Volume Anesthetic (ccs): 3 Wound Repaired With: sutures Suture Size/Type: 6:0 Number of Sutures: 8 Progress: Using sterile technique and Betadine I anesthetized the region with 1% lidocaine , then I used chlorhexidine for irrigation along with sterile water. #8 sutures were placed margins were revised bacitracin was applied (Myke Jean)
--- NOTE | 2018-01-16 16:21 | CT SCAN REPORT ---
EXAMINATION: CT HEAD WITHOUT CONTRAST CLINICAL INFORMATION: Head injury nausea vomiting COMPARISON: None TECHNIQUE: Contiguous axial imaging was performed from the skull base to vertex without intravenous administration of contrast. DLP: 621 mGy-cm FINDINGS: There is no evidence of acute intracranial hemorrhage or territorial infarction. No abnormal mass effect or midline shift is seen. [place] to white matter differentiation is well preserved. No extra-axial fluid collections are identified. The ventricles are normal in size. There is no abnormal attenuation within the brain parenchyma. The osseous structures and soft tissues are normal. The mastoid air cells and visualized portions of the paranasal sinuses are well aerated. Incidental finding was made of a small 3 mm soft tissue structure in the RIGHT external auditory canal, this can be examined directly. IMPRESSION: 1. No intracranial bleed or pathology. 2. There is a 3 mm soft tissue structure in the external auditory canal on the RIGHT side, external cholesteatoma versus a skin lesion. Correlate to the clinical exam.
[2018-01-16] MEDS ORDERED: ZOFRAN4 M2 PO (17:01)
[2018-01-16 17:46] VITALS: BP 132/76
== END 2018-01-16 17:46 ==
LOC: ERH 15:08
DX: S01.81XA Laceration without foreign body of other part of head, initial encounter (principal); S09.90XA Unspecified injury of head, initial encounter; S06.0X0A Concussion without loss of consciousness, initial encounter; W20.8XXA Other cause of strike by thrown, projected or falling object, initial encounter; Y93.H2 Activity, gardening and landscaping; Y92.9 Unspecified place or not applicable
CPT/HCPCS: 90714; J2001; J3101